=== PATIENT | male | born 2000 | race Caucasian/White ===

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

== ENCOUNTER 2020-01-11 12:08 | Emergency (ER) | payer MEDICAID, SELFPAY ==
[2020-01-11 12:11] VITALS: BP 148/75; PULSE 104; RESP 18; TEMP 37.2; O2SAT 99
--- NOTE | 2020-01-11 12:32 | W.ED.GENAD ---
Discharge Plan Disposition Patient Disposition: HOME Condition: Stable Discharge Details Clinical Impression: Abrasion, Leg pain Primary Care Provider: [facility] ED Provider: Abel Powers Home Meds and New Rx's Prescriptions: No Action No Known Home Meds RF: 0 Discharge Instructions Instructions: Abrasion (ED), Leg Pain (ED) Additional Instructions: Tetanus was updated today. [id number] Tylenol and/or Motrin as directed for discomfort. Keep area clean and dry, you may change antibiotic dressing daily. Please watch for new or worsening symptoms and return to the ER for any concerns Medical Decision Making 19-year-old male presents with injury to his left leg. He appears well, nontoxic. He is able to bear weight without difficulty. No other distracting injuries. There are abrasions to his leg but no true laceration that requires repair. Abrasions will be thoroughly cleaned and dressed with antibiotic dressing. Will update tetanus. Neuro, vascular, tendon intact. Normal capillary refill and dorsalis pedal pulses. I see no clear indication for imaging emergently. Patient is in agreement. He has no additional questions or concerns and is comfortable discharge home. Medical Records Medical records reviewed: Yes I reviewed the patient's medical records. HPI General Mode of arrival: ambulatory. Date/Time Provider Initiated Documentation: 01/11/20 12:18. Limitations to Documentation: no limitations. Information obtained by: patient. HPI Narrative: This is a 19-year-old gentleman with past medical history that includes gastritis, anxiety, depression, alcohol abuse, current smoker, presenting to the ER for evaluation of a left leg injury that he occurred just prior to arrival. 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 He slipped in the mud falling to the ground striking his left leg on a piece of rebar. He was wearing pants, it was muddy outside, unsure of the extent of his injury. Decided to come to the ER for further evaluation. He believes that his last tetanus shot was longer than 5 years ago. He reports mild-moderate pain to his left thigh but denies any numbness, tingling, weakness, any other injury. Denies striking his head, headache, LOC, neck pain or chest pain or shortness of breath, abdominal pain, nausea, vomiting, back pain, incontinence. He has been able to bear weight. Denies any injury to his groin, testicles, penis. Related Data Home Medications Medication Instructions Recorded Confirmed Unknown [No Known Home Meds] 03/21/19 01/11/20 Allergies Allergy/AdvReac Type Severity Reaction Status Date / Time No Known Allergies Allergy Verified 01/11/20 12:14 General Stated Complaint: Laceration LUCAS: 3 Review of Systems Constitutional Constitutional: Denies fever(s), Denies headache(s) and Denies weakness Eyes Eyes: Denies change in vision ENT Ears, Nose, Mouth, and Throat: Denies headache(s) Gastrointestinal Gastrointestinal: Denies nausea and Denies vomiting Musculoskeletal Musculoskeletal: Denies numbness and Denies tingling Neurologic Neurologic: Denies headache(s), Denies numbness, Denies tingling and Denies weakness [facility] Medical History (Updated 01/11/20 @ 13:06 by NANCI Sweeney) ADHD (attention deficit hyperactivity disorder) Alcohol withdrawal seizure Anxiety Depression Surgical History S/P left knee arthroscopy Family History Mother Mental disorder anxiety/depression Father Healthy adult Other Personal history of malignant neoplasm MGF-brain Social History Smoking/Tobacco Use Status: Current every day Tobacco Type: cigarettes and e-cigarettes Smoking risk assessment performed?: Yes Alcohol Intake: current Alcohol Intake frequency: 3 or more drinks per day Alcohol type: beer Drug use: Occasionally Substance use type: marijuana, crack/cocaine, tranquilizers and methamphetamine Details: also uses tobacco in a bong Do you feel safe at home: Yes Do you feel safe in your relationship?: Yes Exam Const General: cooperative, healthy appearing, comfortable and no acute distress Orientation: alert and awake [facility] Head: normal to inspection, normocephalic and atraumatic Eyes General: appearance normal, both eyes and all related structures Conjunctivae: conjunctivae normal Sclera: sclerae normal Neck Neck: normal visual inspection, full ROM, trachea midline and supple Resp Effort & Inspection: normal respiratory effort and able to speak in complete sentences Auscultation: clear to auscultation bilaterally Cardio Rate: regular rate Rhythm: regular rhythm GI Inspection: normal to inspection Palpation: soft and nontender Back/Spine/Pelvis Back: No back tenderness Skin General skin exam: no rashes or lesions noted Neuro General: patient alert, patient awake, patient oriented x3, moves all extremities and no focal motor deficits Cognition: normal cognition Speech: speech normal Gait: normal gait Motor: muscle tone normal throughout Sensory Exam: no sensory deficits noted Extrem General: full ROM Right lower extremity: normal to inspection, full ROM and normal capillary refill Left lower extremity: full ROM and normal capillary refill Upper/lower leg/hip images: 1. 2 separate abrasions. Diffuse mild local discomfort. Without swelling, ecchymosis, active bleeding. No signs of foreign body. Neuro, vascular, tendon intact. Patient is able to ambulate and bear weight on his left leg without difficulty. Psych Appearance: grossly normal Mental Status: mental status grossly normal Course Vital Signs Vital signs: Vital Signs Temperature 37.2 C 01/11/20 12:11 Pulse 104 H 01/11/20 12:11 Respiratory Rate 18 01/11/20 12:11 Blood Pressure 148/75 H 01/11/20 12:11 Pulse Oximetry 99 01/11/20 12:11 Temperature 37.2 C 01/11/20 12:11 Temperature Source Temporal Artery Scan 01/11/20 12:11 Pulse 104 H 01/11/20 12:11 Respiratory Rate 18 01/11/20 12:11 Respiratory Effort Non-Labored 01/11/20 12:18 Blood Pressure 148/75 H 01/11/20 12:11 Blood Pressure Position Sitting 01/11/20 12:11 Pulse Oximetry 99 01/11/20 12:11 Oxygen Delivery Method Room Air 01/11/20 12:11 Oxygen Flow Rate 0 01/11/20 12:11 Pain Level 6 01/11/20 12:11
[2020-01-11 12:47] VITALS: PULSE 85; RESP 18; O2SAT 98
== END 2020-01-11 13:09 | disposition home or self-care (01) ==
PROVIDERS: Emergency Provider Physician Assistant; PCP Nurse Practitioner Family
DX: S70.312A Abrasion, left thigh, initial encounter (principal); W01.198A Fall on same level from slipping, tripping and stumbling with subsequent striking against other object, initial encounter; Y99.0 Civilian activity done for income or pay
CPT/HCPCS: 90471; 99284; 99283

== ENCOUNTER 2020-02-07 16:25 | Outpatient (REF) | payer MEDICAID, SELFPAY ==
[2020-02-10 00:35] LABS: COVID-19 RT-PCR UVMMC Result Negative (Negative)
== END 2020-02-07 16:45 ==
LOC: NCHCN 16:25
PROVIDERS: PCP Nurse Practitioner Family; Visit Provider Nurse Practitioner Family
DX: Z20.828 Contact with and (suspected) exposure to other viral communicable diseases (principal)
CPT/HCPCS: U0003

== ENCOUNTER 2020-02-23 09:41 | Emergency (ER) | payer MEDICAID, SELFPAY ==
[2020-02-23 10:00] VITALS: BP 128/61; PULSE 60; RESP 18; TEMP 37.2; O2SAT 99
--- NOTE | 2020-02-23 10:20 | ED.GENADUL_ITS ---
Discharge Plan Disposition Patient Disposition: HOME Condition: Stable Discharge Details Clinical Impression: Dental infection Primary Care Provider: [facility] ED Provider: Glenn Cerna Home Meds and New Rx's Prescriptions: New penicillin V potassium 500 mg tablet 500 mg PO QID Qty: 40 RF: 0 Continued trazodone 50 mg tablet 50 mg PO HS RF: 0 sertraline 50 mg tablet 50 mg PO DAILY RF: 0 Discharge Instructions Instructions: How to Stop Smoking (ED), Dental Abscess (ED) Additional Instructions: Please take antibiotic as prescribed. Please take ibuprofen over the counter. Take 600mg by mouth every 6 hours as needed for pain. Please take acetaminophen (tylenol) - 650mg every 6 hours by mouth as needed for pain. Please contact a dentist to arrange follow-up. Return to the ER for any worsening or new concerning symptoms. Medical Decision Making 19-year-old male here with dental infection. No indication for incision and drainage. No systemic symptoms. Plan to treat with penicillin, NSAIDs, periapical dental block for pain. Patient was instructed to follow-up with dentist as soon as possible. He was encouraged to return immediately for any worsening or new concerning symptoms. Usual customary discharge instructions reviewed with patient. We did discuss smoking cessation and he is minimally motivated at this time. HPI General Mode of arrival: ambulatory . Date/Time Provider Initiated Documentation: 02/23/20 09:45 . Limitations to Documentation: no limitations . Information obtained by: patient . HPI Narrative: 19-year-old male here with dental pain for the past few days. Pain is constant. He notes has had intermittent pain over the past few weeks but worse over the past few days. Pain is localized to tooth #3. No radiation. He does note he had some associated swelling of the right upper face this morning. No fever. No headache. Patient notes he said dental disease medication the past. Related Data Home Medications Medication Instructions Recorded Confirmed penicillin V potassium 500 mg PO QID #40 tab 02/23/20 sertraline 50 mg PO DAILY 02/23/20 02/23/20 trazodone 50 mg PO HS 02/23/20 02/23/20 Previous Rx's Medication Instructions Recorded penicillin V potassium 500 mg PO QID #40 tab 02/23/20 Allergies Allergy/AdvReac Type Severity Reaction Status Date / Time No Known Allergies Allergy Verified 02/23/20 10:03 General Stated Complaint: DentalOral LUCAS: 4 Review of Systems Constitutional Constitutional: Denies fever(s) ENT Ears, Nose, Mouth, and Throat: Reports as per HPI COUNT INCLUDES [facility] Medical History ADHD (attention deficit hyperactivity disorder) Alcohol withdrawal seizure Anxiety Depression Surgical History S/P left knee arthroscopy Family History Mother Mental disorder anxiety/depression Father Healthy adult Other Personal history of malignant neoplasm MGF-brain Social History Smoking/Tobacco Use Status: Current every day Tobacco Type: cigarettes and e- cigarettes Smoking risk assessment performed?: Yes Alcohol Intake: former Substance use type: former substance user and methamphetamine Details: also uses tobacco in a bong Do you feel safe at home: Yes Do you feel safe in your relationship?: Yes Exam Const General: cooperative and no acute distress HENMT Head: normocephalic and atraumatic Face and sinus: normal facial exam Mouth: moist mucous membranes Teeth and gingiva: other (Tooth #4 with prior cavity, no swelling or fluctuance along gumline) Throat: posterior oropharynx normal Eyes Conjunctivae: normal conjunctivae Sclera: normal sclerae EOM: EOM intact bilaterally Neck Neck: trachea midline and supple Course Vital Signs Vital signs: Vital Signs Temperature 37.2 C 02/23/20 10:00 Pulse 60 02/23/20 10:00 Respiratory Rate 18 02/23/20 10:00 Blood Pressure 128/61 02/23/20 10:00 Pulse Oximetry 99 02/23/20 10:00 Temperature 37.2 C 02/23/20 10:00 Temperature Source Temporal Artery Scan 02/23/20 10:00 Pulse 60 02/23/20 10:00 Respiratory Rate 18 02/23/20 10:00 Respiratory Effort Non-Labored 02/23/20 10:04 Blood Pressure 128/61 02/23/20 10:00 Blood Pressure Position Sitting 02/23/20 10:00 Pulse Oximetry 99 02/23/20 10:00 Oxygen Delivery Method Room Air 02/23/20 10:00 Oxygen Flow Rate 0 02/23/20 10:00 Pain Level 7 02/23/20 10:00 Procedures Nerve Block Nerve Block 1: Time out performed: Yes Local Anesthetic: Lidocaine 2% Amount of anesthesia used (mL): 2 Side: right Intraoral Nerve Block: other (Periapical) Procedure Successful: Yes Patient Tolerated Procedure: well and no complications
[2020-02-23] MEDS: Lidocaine 2% Pres-Free 5 ML VIAL IJ (10:23)
[2020-02-23] MEDS: Acetaminophen 325 MG TAB 650 MG PO (10:23)
[2020-02-23] MEDS: Penicillin V POTASSIUM 500 MG TAB PO (10:24)
== END 2020-02-23 10:31 | disposition home or self-care (01) ==
PROVIDERS: Emergency Provider Student in an Organized Health Care Education/Training Program; PCP Nurse Practitioner Family
DX: R68.84 Jaw pain (principal); K04.7 Periapical abscess without sinus; R22.0 Localized swelling, mass and lump, head
CPT/HCPCS: 64450

== ENCOUNTER 2020-05-08 14:52 | Outpatient (REF) | payer MEDICAID, SELFPAY ==
[2020-05-09 11:40] LABS: COVID-19 RT-PCR UVMMC Result Negative (Negative)
[2020-05-11 11:53] LABS: HIV-1/2 Ag & Ab Screen Negative (Negative)
[2020-05-11 11:59] LABS: Syphilis Serology (RPR) Negative (Negative)
[2020-05-11 15:49] LABS: Chlamydia Result Negative (Negative); GC Result Negative (Negative)
== END 2020-05-08 14:53 | disposition home or self-care (01) ==
LOC: NCHCN 14:52
PROVIDERS: PCP Nurse Practitioner Family; Visit Provider Physician Assistant
DX: Z11.3 Encounter for screening for infections with a predominantly sexual mode of transmission (principal); Z11.4 Encounter for screening for human immunodeficiency virus [HIV]; Z20.822 Contact with and (suspected) exposure to COVID-19
CPT/HCPCS: 87389; 87491; 87591; U0003; 86592

== ENCOUNTER 2020-05-30 15:15 | Emergency (ER) | payer MEDICAID, SELFPAY ==
[2020-05-30] VITALS (21 sets, daily range): BP systolic 117–168; BP diastolic 54–81; PULSE 107–123; RESP 17–35; TEMP 37.2; O2SAT 93–97
--- NOTE | 2020-05-30 15:28 | ED.GENADUL_ITS ---
Discharge Plan Disposition Patient Disposition: AGAINST MEDICAL ADVICE Condition: Serious Discharge Details Clinical Impression: Chest pain, Tachycardia Primary Care Provider: [facility] ED Provider: Yasmine Epperson Home Meds and New Rx's Prescriptions: No Action trazodone 50 mg tablet 50 mg PO HS RF: 0 sertraline 50 mg tablet 50 mg PO DAILY RF: 0 penicillin V potassium 500 mg tablet 500 mg PO QID Qty: 40 RF: 0 quetiapine [Seroquel] 100 mg Tablet 100 mg PO QHS RF: 0 gabapentin 800 mg tablet 800 mg PO BID RF: 0 Discharge Instructions Instructions: Chest Pain (ED) Additional Instructions: At this time you are choosing to leave AGAINST MEDICAL ADVICE prior to the completion of your cardiac and work-up. CT of your chest is not yet resulted. Leaving AGAINST MEDICAL ADVICE may result in disability, worsening of your condition and including but not limited to . Follow up with primary care provider in 3-5 days. Return to ED sooner if any worsening or concerns. Increase oral fluids. Please take Tylenol or Ibuprofen with food every 4-6 hours as needed for pain and swelling. Please be retested for Covid 19 the next 2 to 3 days. You may call the testing tent in our parking lot outside an appointment for across the street at [facility] do not need an appointment you can describe to be tested. Stand Alone Forms: PENDING COVID-19 TESTING, Work Release Referrals: [facility] [Primary Care Provider] - Medical Decision Making <NANCI Sweeney - Last Filed: 05/30/20 15:52> This is a 19-year-old gentleman presenting to the ER for dry cough, shortness of breath, chest heaviness, generalized fatigue that began yesterday. He has not taken any [id number] medications for his symptoms. Over the past week he has been around people who were Covid positive. Clinically he appears tachycardic, slightly dry. He is afebrile and his O2 sats are 97% on room air. Will obtain IV access, initiate cardiac work-up and obtain chest CTA for PE study. Given his tachycardia, unclear whether or not we will be able to discharge him. Will obtain a rapid Covid test. Will provide IV fluid and IV Zofran. Differential includes but not excluded to Covid, PE, pneumonia, viral carditis, etc. Patient comfortable with this plan and has no additional questions or concerns. I did assure him that we would be able to provide him with a work note stating he was seen in the ER today. Medical Records Medical records reviewed: Yes I reviewed the patient's medical records. ECG Data Attestation: I personally reviewed and interpreted this ECG (s) as follows: Interpretation: Please see official report by Dr. Cedeno. Sinus tachycardia, ventricular rate of 117. <Yasmine Epperson - Last Filed: 05/30/20 17:46> Care assumed from provider (NANCI Kaiser) Discussed patient details and case and pending workup and disposition. Patient is hemodynamically stable,. He is tachycardic at 114, alert and oriented x3. Does appear anxious. Patient is requesting a work note he is supposed to be at work today he is worried that he is going to lose his job. A work note was written for the next 48 hours I did discuss that he needs to quarantine and be retested with a nasopharyngeal swab in the next 2 to 3 days because of patient's symptoms. Patient is requesting to leave I did discuss risks and benefits of the I did discuss his lab results with him he verbalizes understanding. At this time CT of his chest is still pending. Patient will be leaving AGAINST MEDICAL ADVICE. Patient requesting to leave AMA. The patient appears clinically sober and is not under the influence of any known substances. Discussed risks and benefits with patient. Patient verbalizes understanding of situation and the risks of leaving including worsening condition, developing disability, including but not limited to .Discussed results of labs and imaging, if they were performed and recommendations for further treatment and/or observation. The patient verbalizes understanding of the results discussed. Every effort was made to involve family if appropriate and situation discussed. At this time patient has opted to leave against medical advice. Patient is alert and oriented and has the capacity to make own decisions. CT results returned after patient left AMA. CT chest read negative for PE, consolidation or masses. COMPARISON: CT CHEST/ABD/PEL W 05/29/2018 11:49 AM FINDINGS: Pulmonary arteries: Normal. No pulmonary emboli. Aorta: Unremarkable. No aortic aneurysm. No aortic dissection. Lungs: Unremarkable. No consolidation. No masses. Pleural spaces: Unremarkable. No pneumothorax. No pleural effusion. Heart: Unremarkable. No cardiomegaly. No pericardial effusion. Lymph nodes: Unremarkable. No enlarged lymph nodes. Bones/joints: Unremarkable. No acute fracture. Soft tissues: Unremarkable. IMPRESSION: No acute findings. Thank you for allowing us to participate in the care of your patient. Dictated and Authenticated by: Colby Gauthier MD HPI <NANCI Sweeney - Last Filed: 05/30/20 15:52> General Mode of arrival: ambulatory . Date/Time Provider Initiated Documentation: 05/30/20 15:28 . Limitations to Documentation: no limitations . Information obtained by: patient . HPI Narrative: This is a 19-year-old male, current half pack a day smoker, past medical history of alcohol abuse, alcohol withdrawal seizure, depression, anxiety, presenting to the ER today for evaluation. He reports that he has been around people who were Covid positive over the past 5 days. Yesterday he developed generalized fatigue, body aches, chest heaviness, shortness of breath, dry cough, chills. No fever. Denies headache, neck pain, abdominal pain, back pain, vomiting, dysuria, hematuria, pain in his extremities, numbness, tingling, weakness. Does report mild nausea. Patient states that he is supposed to be at work right now it is very concerned that he is going to lose his job. He would like the proper paperwork stating he was here. He also reports decreased sense of taste. Related Data Home Medications Medication Instructions Recorded Confirmed penicillin V potassium 500 mg PO QID #40 tab 02/23/20 sertraline 50 mg PO DAILY 02/23/20 02/23/20 trazodone 50 mg PO HS 02/23/20 02/23/20 gabapentin 800 mg PO BID 05/30/20 05/30/20 quetiapine [Seroquel] 100 mg PO QHS 05/30/20 05/30/20 Previous Rx's Medication Instructions Recorded penicillin V potassium 500 mg PO QID #40 tab 02/23/20 Allergies Allergy/AdvReac Type Severity Reaction Status Date / Time amoxicillin AdvReac Intermediate Unverified 05/30/20 15:27 Penicillins AdvReac Intermediate Other (See Unverified 05/30/20 15:27 Comment) General Stated Complaint: GenMedical LUCAS: 2 Review of Systems <NANCI Sweeney - Last Filed: 05/30/20 15:52> Constitutional Constitutional: Reports fatigue, Denies fever(s), Denies headache(s), Reports malaise and Reports weakness Eyes Eyes: Denies change in vision ENT Ears, Nose, Mouth, and Throat: Denies headache(s) and Denies neck pain Cardiovascular Cardiovascular: Reports chest pain and Reports dyspnea Respiratory Respiratory: Reports cough and Reports dyspnea Gastrointestinal Gastrointestinal: Denies abdominal pain, Reports nausea and Denies vomiting Genitourinary Genitourinary: Denies dysuria Musculoskeletal Musculoskeletal: Denies back pain and Denies neck pain Integumentary/Breasts Skin/Breast: Denies rash Neurologic Neurologic: Denies headache(s) and Reports weakness Endocrine Endocrine: Reports fatigue PFSH <NANCI Sweeney - Last Filed: 05/30/20 15:52> Medical History (Updated 05/30/20 @ 17:14 by Yasmine Epperson) ADHD (attention deficit hyperactivity disorder) Alcohol withdrawal seizure Anxiety Depression Surgical History S/P left knee arthroscopy Family History Mother Mental disorder anxiety/depression Father Healthy adult Other Personal history of malignant neoplasm MGF-brain Social History Smoking/Tobacco Use Status: Current every day Tobacco Type: cigarettes and e- cigarettes Smoking risk assessment performed?: Yes Alcohol Intake: former Substance use type: former substance user and methamphetamine Details: also uses tobacco in a bong Do you feel safe at home: Yes Do you feel safe in your relationship?: Yes Exam <NANCI Sweeney - Last Filed: 05/30/20 15:52> Const General: cooperative, comfortable and no acute distress Orientation: alert, awake and oriented x3 HENMT Head: normal to inspection, normocephalic and atraumatic Ears: external ears normal, TM's normal bilaterally and EAC's normal General nose exam: external nose normal Face and sinus: normal facial exam Mouth: moist mucous membranes abnormal (Dry) Throat: posterior oropharynx normal Eyes General: appearance normal, both eyes and all related structures Alignment and Position: alignment normal Periorbital: periorbital findings normal Eyelids: eyelids normal Conjunctivae: conjunctivae normal Sclera: sclerae normal Cornea: corneas normal Pupils: PERRL EOM: EOM intact bilaterally Direct ophthalmoscopy: normal light reflex Neck Neck: normal visual inspection, full ROM, no lymphadenopathy, no meningeal signs, trachea midline, supple and nontender Resp Effort & Inspection: normal respiratory effort, able to speak in complete sentences and cough Quality of cough: dry Auscultation: diminished lung sounds bilaterally in the lower lung to Cardio Rate: tachycardic (130s) Rhythm: regular rhythm GI Palpation: soft, not firm, no guarding and nontender Auscultation: normal bowel sounds Back/Spine/Pelvis Back: No back tenderness Skin General skin exam: no rashes or lesions noted Neuro General: patient alert, patient awake, moves all extremities and no focal motor deficits Cognition: normal cognition Speech: speech normal Gait: normal gait Motor: muscle tone normal throughout Sensory Exam: no sensory deficits noted Extrem General: normal to inspection, full ROM, capillary refill normal, no pedal edema and no calf tenderness Psych Appearance: grossly normal Mental Status: mental status grossly normal Course <NANCI Sweeney - Last Filed: 05/30/20 15:52> Vital Signs Vital signs: Vital Signs Temperature 37.2 C 05/30/20 15:22 Pulse 122 H 05/30/20 15:22 Respiratory Rate 18 05/30/20 15:22 Blood Pressure 168/81 H 05/30/20 15:22 Pulse Oximetry 97 05/30/20 15:22 Temperature 37.2 C 05/30/20 15:22 Pulse 122 H 05/30/20 15:22 Respiratory Rate 18 05/30/20 15:22 Blood Pressure 168/81 H 05/30/20 15:22 Pulse Oximetry 97 05/30/20 15:22 Oxygen Delivery Method Room Air 05/30/20 15:22 Oxygen Flow Rate 0 05/30/20 15:22 Sign Out <NANCI Sweeney - Last Filed: 05/30/20 15:52> Sign Out Data: Sign Out Comment: Presents with fatigue, dry cough, chest heaviness, shortness of breath that began yesterday. Covid positive exposures. Initiating IV access, laboratory values, CTA of chest. Last updated by Abel Powers PA at 05/30/20 15:53
--- NOTE | 2020-05-30 15:30 | DI.CT_ITS ---
EXAM: CT CHEST PE CTA CLINICAL HISTORY: tachy, cp, covid + contacts. TECHNIQUE: Imaging Protocol: Axial CT angiography was performed with multi-slice acquisition and mu lti-planar and/or 3D reconstructions. CONTRAST MATERIAL: Intravenous: Omnipaque 350 Contrast volume:100 mL COMPARISON: CT CT CHEST/ABD/PEL W from 05/29/2018 FINDINGS: Tracheobronchial tree: Patent where visualized. Pulmonary parenchyma: No consolidation or dominant measurable mass. No architectural distortion. Pulmonary Arteries: No evidence of filling defect to suggest pulmonary emboli. Mediastinum and Shreya: No dominant adenopathy or fluid collection. There is soft tissue in the anterio r mediastinum which may reflect residual thymic tissue. Visualized thyroid gland: Unremarkable. Pleura: No effusion or pneumothorax. Heart: The heart is not dilated. No coronary artery calcifications are seen. No pericardial effusion. Aorta: Thoracic aorta non-dilated. No dissection. Upper abdomen: There is a 2.4 cm left adrenal nodule. This likely reflects an adrenal adenoma. Soft tissues: Unremarkable. Bones: Normal. IMPRESSION: No evidence of pulmonary embolism, thoracic aortic dissection or aneurysm. RADIATION DOSE DELIVERED: 365.94mGy.cm Total DLP DATA REPOSITORY: All CT scans at this facility are submitted to the National Radiology Data Registry (NRDR) Dose Index Registry (DIR) with the [employer] (ACR). RADIATION OPTIMIZATION: All CT scans at this facility use at least one of these dose optimization te chniques: automated exposure control; mA and/or kV adjustment per patient size (includes targeted exa ms where dose is matched to clinical indication); or iterative reconstruction.
--- NOTE | 2020-05-30 15:30 | RT.EKG_ITS ---
APPROVED REPORT Exam: Resting ECG Patient Location: E HR:117 bpm ECG Measurements Heart Rate 117 AXIS NC 127 P 56 QRSd 81 QRS 70 QT 313 T 68 QTc 436 Conclusion Sinus tachycardia...no brugada or wpw or epsilon wave. No stemi
[2020-05-30] MEDS: Normal Saline 1,000 ML 1000 ML IV ×2 (15:51→17:21)
[2020-05-30] MEDS: Ondansetron 4 MG/2 ML VIAL IVP (15:51)
[2020-05-30 15:53] LABS: Source Nasal/Nares
[2020-05-30] MEDS: LORazepam 2 MG/ML VIAL 1 MG IVP (15:59)
[2020-05-30 16:00] LABS: Abs Immature Grans 0.02 10^3/uL (0.0-0.06); Absolute Basophil Count 0.01 10^3/uL (0.0-0.2); Absolute Eosinophil Count 0.01 10^3/uL (0.0-0.7); Absolute Lymphocyte Count 1.68 10^3/uL (1.2-3.4); Absolute Monocyte Count 0.39 10^3/uL (0.1-0.8); Absolute Neutrophil Count 4.83 10^3/uL (1.2-6.7); Basophils % 0.1; Eosinophils % 0.1; HCT 40.4 % (40.0-50.0); HGB 13.9 g/dL (13.5-17.5); Immature Grans % 0.3; Lymphocytes % 24.2; MCH 32.6 pg (27.0-33.0); MCHC 34.4 % (32.0-36.0); MCV 94.6 fL (80-95); MPV 8.4 fL (8.0-11.0); Monocytes % 5.6; Neutrophils % 69.7; Nucleated RBC 0 %; Platelet Count 234 10^3/uL (130-400); RBC 4.27 10^6/uL (4.36-5.78); RDW 13.4 % (11.8-14.1); RDW-SD 46.3 fL; WBC 6.94 10^3/uL (4.4-10.8)
[2020-05-30 16:09] LABS: Lactate 2.3 mmol/L (0.6-1.4)
[2020-05-30 16:24] LABS: ALT 38 U/L (16-63); AST 16 U/L (15-37); Alkaline Phosphatase 223 U/L (46-116); Anion Gap 7.9 mmol/L (3-11); BUN 8 mg/dL (7-18); Bilirubin, Total 0.4 mg/dL (0.2-1.0); CO2 25.1 mmol/L (21.0-32.0); Calcium 8.9 mg/dL (8.5-10.1); Chloride 102 mmol/L (98-107); Glucose 130 mg/dL (74-106); Magnesium 2.2 mg/dL (1.8-2.4); Potassium 3.6 mmol/L (3.5-5.1); Sodium 135 mmol/L (136-145); Total Protein 7.3 g/dL (6.4-8.2)
[2020-05-30 16:26] LABS: Troponin I < 0.05 ng/mL (<0.06)
[2020-05-30] MEDS: Omnipaque 350 MG/ML 100 ML BTL IJ (16:26)
[2020-05-30] MEDS: Normal Saline - Diluent 50 ML VIAL IV (16:27)
[2020-05-30] MEDS: Normal Saline Flush 10 ML SYR IVP (16:27)
[2020-05-30 16:31] LABS: COVID-19 PCR Negative (Negative)
--- NOTE | 2020-05-30 17:40 | DI.VRAD_ITS ---
PROCEDURE INFORMATION: Exam: CTA Chest With Contrast Exam date and time: 05/30/2020 3:43 PM Age: 19 years old Clinical indication: Tachypnea and other: Tachycardia; Chest pain; Type not specified; Patient HX: Covid exposure TECHNIQUE: Imaging protocol: Computed tomographic angiography of the chest with contrast. 3D rendering (Not supervised by radiologist): MIP and/or 3D reconstructed images were created by the technologist. Radiation optimization: All CT scans at this facility use at least one of these dose optimization techniques: automated exposure control; mA and/or kV adjustment per patient size (includes targeted exams where dose is matched to clinical indication); or iterative reconstruction. Contrast material: OMNIPAQUE 350; Contrast volume: 100 ml; Contrast route: INTRAVENOUS (IV); COMPARISON: CT CHEST/ABD/PEL W 05/29/2018 11:49 AM FINDINGS: Pulmonary arteries: Normal. No pulmonary emboli. Aorta: Unremarkable. No aortic aneurysm. No aortic dissection. Lungs: Unremarkable. No consolidation. No masses. Pleural spaces: Unremarkable. No pneumothorax. No pleural effusion. Heart: Unremarkable. No cardiomegaly. No pericardial effusion. Lymph nodes: Unremarkable. No enlarged lymph nodes. Bones/joints: Unremarkable. No acute fracture. Soft tissues: Unremarkable. IMPRESSION: No acute findings. Dictated and Authenticated by: Colby Gauthier MD. Ordering:DAPHNIE Roman MD
== END 2020-05-30 17:39 | disposition left against medical advice (07) ==
PROVIDERS: Physician Assistant; Emergency Provider Registered Nurse Emergency; PCP Nurse Practitioner Family
DX: R05 Cough (principal); R06.02 Shortness of breath; M79.10 Myalgia, unspecified site; R53.83 Other fatigue; Z03.818 Encounter for observation for suspected exposure to other biological agents ruled out
CPT/HCPCS: 36415; 71275; 80053; 87635; 93005; 96360; 96361; 99285; 83605; 83735; 84484; 85025; 85610; 85730; 93010; J2060; J2405; J3490